=== PATIENT | female | born 2005 | race Caucasian/White ===

== ENCOUNTER 2023-12-22 09:56 | Inpatient (IN) | payer MEDICAID ==
[~2023-12-22] VITALS: Ht 162.6 cm; Wt 72.6 kg
[~2023-12-22 09:56] MED LIST: TRILEPTAL PO
[2023-12-22] MEDS ORDERED: CLOB10TA3 PO (10:18)
[2023-12-22 10:35] LABS: BASOPHILS # (AUTO) 0.1 K/UL (0.0-0.2); BASOPHILS % (AUTO) 1.8 % (0.0-2.0); EOSINOPHILS # (AUTO) 0.1 K/uL (0.0-0.7); EOSINOPHILS % (AUTO) 0.7 % (0.0-7.0); HEMATOCRIT 40.5 % (31.2-41.9); HEMOGLOBIN 13.4 g/dL (10.9-14.3); LYMPHOCYTES # (AUTO) 0.9 K/uL (0.8-4.8); LYMPHOCYTES % (AUTO) 13.2 % (20.5-74.5); MEAN CORPUSCULAR HEMOGLOBIN 27.7 uug (24.7-32.8); MEAN CORPUSCULAR HGB CONC 33 g/dL (32.3-35.6); MEAN CORPUSCULAR VOLUME 84.2 fL (75.5-95.3); MONOCYTES # (AUTO) 0.3 K/uL (0.1-1.30); MONOCYTES % (AUTO) 4.1 % (0-11); NEUTROPHILS # (AUTO) 5.6 K/uL (1.8-8.9); NEUTROPHILS % (AUTO) 80.2 % (31.5-64.5); PLATELET COUNT (AUTO) 339 K/uL (179-408); RED BLOOD CELL COUNT(AUTO) 4.81 MIL/uL (3.63-4.92); WHITE BLOOD COUNT (AUTO) 6.9 K/uL (3.8-11.8)
[2023-12-22 10:52] LABS: ALANINE AMINOTRANSFERASE 48 U/L (14-59); ALBUMIN 3.8 g/dL (3.4-5.0); ALKALINE PHOSPHATASE 131 U/L (50-136); ASPARTATE AMINOTRANSFERASE 42 U/L (15-37); BILIRUBIN,DIRECT 0.1 mg/dL (0.0-0.2); BILIRUBIN,TOTAL 0.3 mg/dL (0.2-1.0); CALCIUM 9.1 mg/dL (8.5-10.1); CARBON DIOXIDE 24 mmol/L (21-32); CHLORIDE 92 mmol/L (98-107); CREATININE 0.5 mg/dL (0.6-1.3); GLUCOSE 123 mg/dL (74-106); MAGNESIUM 1.9 mg/dL (1.8-2.4); POTASSIUM 3.9 mmol/L (3.5-5.1); SODIUM SERUM 121 mmol/L (136-145); UREA NITROGEN, BLOOD 6 mg/dL (7-18)
[2023-12-22 11:00] LABS: DIFFERENTIAL COMMENT 1
[2023-12-22] MEDS ORDERED: IV NS 1000 ML 1,000 ML IV ONE (12:30)
[2023-12-22 13:14] LABS: *BILIRUBIN,URIN NEGATIVE (NEGATIVE); *BLOOD, URINE NEGATIVE (NEGATIVE); *CLARITY,URINE CLEAR (CLEAR); *COLOR,URINE YELLOW (YELLOW); *KETONES,URINE NEGATIVE (NEGATIVE); *PROTEIN,URINE NEGATIVE (NEGATIVE); *UROBILINOGEN,URINE 0.2 E.U./dl (NORMAL); LEUKOCYTE ESTERASE ,URINE NEGATIVE (NEGATIVE); NITRITE, URINE NEGATIVE (NEGATIVE); UGLUCOSE NEGATIVE (NEGATIVE)
[2023-12-22] MEDS ORDERED: CLOB2.5O2 PO (15:07)
[2023-12-22] MEDS ORDERED: OXCA300O PO (15:07)
[2023-12-22] MEDS ORDERED: REMEDY ESSENTIAL ZINC PASTE 113 GM TP PRN (15:15)
[2023-12-22] MEDS ORDERED: ONDANSETRON 4 MG/2 ML VIAL IV PRN (15:15)
[2023-12-22] MEDS ORDERED: ACETAMINOPHEN 325 MG TABLET PO PRN (15:15)
[2023-12-22] MEDS ORDERED: IV NS 1000 ML 1,000 ML IV PRN (15:15)
[2023-12-22] MEDS ORDERED: MAGNESIUM HYDROXIDE 30 ML LIQUID UDC PO PRN (15:15)
[2023-12-22] MEDS ORDERED: HOME MED MISCELLANEOUS XX SCH (15:15)
[2023-12-22 15:22] LABS: *SODIUM RNDM,URINE 77 mmol/L (40-220)
[2023-12-22 15:38] LABS: *URINE HCG, QUAL NEGATIVE (NEGATIVE)
[2023-12-22] MEDS ORDERED: CLONAZEPAM 1 MG TABLET PO PRN (15:45)
[2023-12-22] MEDS ORDERED: IV SODIUM CHLORIDE 3% 500 ML IV PRN (16:30)
[2023-12-22] MEDS ORDERED: CHOLECALCIFEROL 1,000 UNIT TABLET ONE (17:49)
[2023-12-22] MEDS ORDERED: CHOLECALCIFEROL 1,000 UNIT TABLET PO SCH (18:00)
[2023-12-22 18:40] LABS: CALCIUM 8.8 mg/dL (8.5-10.1); CREATININE 0.6 mg/dL (0.6-1.3)
[2023-12-22] MEDS ORDERED: SODIUM CHLORIDE 3% IV PRN (18:45)
[2023-12-22 18:55] VITALS: BP 111/64; TEMP 98; O2SAT 100
[2023-12-22] MEDS: IV D5W 1000ML 1,000 ML IV SCH (19:01)
[2023-12-22] MEDS: OXCARBAZEPINE 300 MG TABLET PO SCH (20:20)
[2023-12-22 20:25] VITALS: BP 96/56; TEMP 98.4; O2SAT 97
[2023-12-22 22:50] LABS: CARBON DIOXIDE 26 mmol/L (21-32); CHLORIDE 104 mmol/L (98-107); CREATININE 0.5 mg/dL (0.6-1.3); GLUCOSE 105 mg/dL (74-106); POTASSIUM 4.1 mmol/L (3.5-5.1); SODIUM SERUM 138 mmol/L (136-145); UREA NITROGEN, BLOOD 7 mg/dL (7-18)
[2023-12-23 00:15] VITALS: BP 93/57; TEMP 98.4; O2SAT 95
[2023-12-23] MEDS: IV D5W 1000ML 1,000 ML IV SCH (04:35)
[2023-12-23 04:36] VITALS: BP 96/60; TEMP 98.3; O2SAT 95
[2023-12-23] MEDS ORDERED: IV D5W 1000ML 1,000 ML IV PRN (05:24)
[2023-12-23 07:37] LABS: BASOPHILS # (AUTO) 0.1 K/UL (0.0-0.2); BASOPHILS % (AUTO) 0.9 % (0.0-2.0); EOSINOPHILS % (AUTO) 0.6 % (0.0-7.0); HEMATOCRIT 34.6 % (31.2-41.9); HEMOGLOBIN 11.7 g/dL (10.9-14.3); LYMPHOCYTES # (AUTO) 1.5 K/uL (0.8-4.8); LYMPHOCYTES % (AUTO) 21.2 % (20.5-74.5); MEAN CORPUSCULAR HEMOGLOBIN 28.4 uug (24.7-32.8); MEAN CORPUSCULAR HGB CONC 34 g/dL (32.3-35.6); MEAN CORPUSCULAR VOLUME 83.8 fL (75.5-95.3); MONOCYTES # (AUTO) 0.5 K/uL (0.1-1.30); MONOCYTES % (AUTO) 6.5 % (0-11); NEUTROPHILS # (AUTO) 5.1 K/uL (1.8-8.9); NEUTROPHILS % (AUTO) 70.8 % (31.5-64.5); PLATELET COUNT (AUTO) 299 K/uL (179-408); RED BLOOD CELL COUNT(AUTO) 4.13 MIL/uL (3.63-4.92); RED CELL DISTRIBUTION WIDTH 15.1 % (12.3-17.7); WHITE BLOOD COUNT (AUTO) 7.2 K/uL (3.8-11.8)
[2023-12-23 07:55] LABS: CALCIUM 8.5 mg/dL (8.5-10.1); CARBON DIOXIDE 24 mmol/L (21-32); CHLORIDE 101 mmol/L (98-107); CREATININE 0.4 mg/dL (0.6-1.3); GLUCOSE 110 mg/dL (74-106); MAGNESIUM 1.8 mg/dL (1.8-2.4); PHOSPHOROUS 4.3 mg/dL (2.5-4.9); POTASSIUM 3.7 mmol/L (3.5-5.1); SODIUM SERUM 134 mmol/L (136-145); UREA NITROGEN, BLOOD 6 mg/dL (7-18); URIC ACID 1.7 mg/dL (2.6-6.0)
[2023-12-23 08:10] LABS: DIFFERENTIAL COMMENT 1
[2023-12-23 08:11] LABS: THYROID STIMULATING HORMONE 2.445 mIU/mL (0.358-3.740)
[2023-12-23] MEDS: OXCARBAZEPINE 300 MG TABLET PO SCH (08:43)
[2023-12-23] MEDS ORDERED: PANTOPRAZOLE SODIUM 40 MG VIAL IV SCH (09:00)
[2023-12-23 11:36] VITALS: BP 92/57; TEMP 98.5; O2SAT 97
[2023-12-23] MEDS: CLOBAZAM 2.5 MG/ML PO SCH ×2 (13:04→18:05)
[2023-12-23 15:48] VITALS: BP 108/66; TEMP 98.7; O2SAT 97
[2023-12-23] MEDS ORDERED: DIAZEPAM 10 MG/2 ML DISP.SYRIN IV PRN (17:45)
[2023-12-23 20:00] VITALS: BP 111/60; TEMP 98.5; O2SAT 97
== END 2023-12-23 21:00 | disposition designated cancer center or children's hospital (05) | DRG 53 ==
LOC: ER 09:59 → TELE3 17:45
PROVIDERS: ADMIT Nurse Practitioner Acute Care; ATTEND Nurse Practitioner Acute Care
DX: G40.901 Epilepsy, unspecified, not intractable, with status epilepticus (principal); E87.1 Hypo-osmolality and hyponatremia; E87.20 Acidosis, unspecified; G91.9 Hydrocephalus, unspecified; G80.9 Cerebral palsy, unspecified; T85.09XA Other mechanical complication of ventricular intracranial (communicating) shunt, initial encounter; Z98.2 Presence of cerebrospinal fluid drainage device; Z79.899 Other long term (current) drug therapy; K76.0 Fatty (change of) liver, not elsewhere classified; G93.0 Cerebral cysts
CPT/HCPCS: 36415; 70450; 71045; 83735; 84100; 84300; 84443; 84484; 84550; 84703; 85025; 93005; C9113; G0378; J7040; J7070